=== PATIENT | male | born 1980 | race Two or more races ===

== ENCOUNTER 2019-02-01 20:24 | Observation (INO) | payer SELFPAY ==
[~2019-02-01] VITALS: Ht 172.7 cm; Wt 88.0 kg
--- NOTE | 2019-02-01 20:35 | NUR ---
BIB [facility] WITH C/O RIGHT LOWER BACK PAIN THAT STARTED 3 DAYS AGO, NOT ABLE TO URINATE THAT STARTED THIS MORTNING. PAIN WORSE WITH PALPATION OR MVMT. PT TOOK 2 EXCEDRIN PRIOR TO EMS ARRIVAL, EMS ADMINISTERED IV NS 250 ML, APPLIED HEAT PACK TO BACK. MONITORS APPLIED, SIDERAILS UP X2, CALL LIGHT WITHIN REACH
[2019-02-01] MEDS ORDERED: KETOROLAC 30 MG/1 ML ONE (20:45)
[2019-02-01] MEDS ORDERED: METHOCARBAMOL 750 MG TABLET ONE (20:46)
[2019-02-01] MEDS ORDERED: MORPHINE SULFATE 4 MG/ML, 1ML ONE ×2 (20:46→22:08)
--- NOTE | 2019-02-01 20:49 | NUR ---
Jimmy baez in ED - 02/01/19 at 2051 by MELINDA URINE SAMPLE SENT TO LAB. PT TO [facility]
--- NOTE | 2019-02-01 20:52 | NUR ---
URINE SAMPLE SENT TO LAB. PT TO CT
[2019-02-01 20:56] LABS: BASOPHILS # (AUTO) 0.03 x10^3/uL (0-0.1); BASOPHILS % (AUTO) 1 % (0-1); EOSINOPHILS % (AUTO) 4 % (1-7); LYMPHOCYTES # (AUTO) 2.82 x10^3/uL (1-3.4); LYMPHOCYTES % (AUTO) 42 % (22-44); MD NO; MEAN CORPUSCULAR HGB CONC 33.7 g/dL (33.2-36.2); MEAN CORPUSCULAR VOLUME 91.8 fL (81-97); MEAN PLATELET VOLUME 7.8 fL (7.4-10.4); MONOCYTES # (AUTO) 0.39 x10^3/uL (0.2-0.8); MONOCYTES % (AUTO) 6 % (2-9); NEUTROPHILS # (AUTO) 3.17 x10^3/uL (1.8-6.8); NEUTROPHILS % (AUTO) 47 % (42-75); PLATELET COUNT 220 x10^3/uL (130-400); RED BLOOD COUNT 5.26 x10^6/uL (4.38-5.82); RED CELL DISTRIBUTION WIDTH 13.4 % (9.4-14.8)
[2019-02-01] MEDS ORDERED: METHOCARBAMOL 750 MG TABLET PO ONE (21:00)
[2019-02-01] MEDS ORDERED: KETOROLAC 30 MG/1 ML IVPush ONE (21:00)
--- NOTE | 2019-02-01 21:03 | NUR ---
PT MEDICATED PER MAR, PROVIDED PT WITH WARM BLANKETS, MONITORS IN PLACE, CALL LIGHT WITHIN REACH
[2019-02-01 21:04] LABS: MICROSCOPIC NOT IND
[2019-02-01 21:05] LABS: CULTURE INDICATED? NO
[2019-02-01 21:06] LABS: ALANINE AMINOTRANSFERASE 51 U/L (12-78); ANION GAP 6 mmol/L (5-15); CALCIUM 8.9 mg/dL (8.5-10.1); CHLORIDE 107 mmol/L (98-107); CREATININE 1.13 mg/dL (0.7-1.3)
[2019-02-01 21:08] LABS: ALKALINE PHOSPHATASE 62 U/L (45-117); BILIRUBIN,TOTAL 0.4 mg/dL (0.2-1.0); TOTAL PROTEIN 7.3 g/dL (6.4-8.2)
[2019-02-01] MEDS: MORPHINE SULFATE 4 MG/ML, 1ML IVPush PRN ×2 (21:18→22:10)
--- NOTE | 2019-02-01 22:34 | NUR ---
pt getting ready for d/c, pt stated "i can't get up, i'm in too much pain", pt requesting to see erp. erp updated and will see pt
[2019-02-01] MEDS ORDERED: HYDROcodone/APAP 5/325 TABLET ONE (22:58)
[2019-02-01] MEDS ORDERED: HYDROcodone/APAP 5/325 TABLET PO ONE (23:00)
--- NOTE | 2019-02-01 23:35 | NUR ---
PT STATED HE IS UNABLE TO GET UP OOB BECAUSE IT'S TOO PAINFUL, ERP UPDATED, PT TO BE ADMITTED
[2019-02-02] MEDS ORDERED: HYDROmorphone 2 MG/ML, 1ML IVPush PRN
[2019-02-02] MEDS ORDERED: POLYETHYLENE GLYCOL 17 GM PACKET PO PRN (00:30)
[2019-02-02] MEDS ORDERED: BISACODYL 10 MG SUPP PR PRN (00:30)
[2019-02-02] MEDS ORDERED: methylPREDNISolone 4mg DOSE PACK PO ONE (00:30)
[2019-02-02] MEDS ORDERED: ONDANSETRON ODT 4 MG PO PRN (00:30)
[2019-02-02 00:35] VITALS: BP 125/80
[2019-02-02] MEDS: DIAZEPAM 5 MG TABLET PO PRN ×2 (00:57→11:43)
[2019-02-02 06:55] VITALS: BP 92/54
[2019-02-02] MEDS: SENNA/DOCUSATE TABLET PO SCH (07:54)
[2019-02-02] MEDS: SODIUM CHLORIDE FLUSH 10ML SYR IVF SCH ×2 (07:54→19:43)
[2019-02-02] MEDS: OXYcodone/APAP 5/325MG TABLET PO PRN ×4 (08:05→23:45)
[2019-02-02 10:43] LABS: BASOPHILS # (AUTO) 0.01 x10^3/uL (0-0.1); BASOPHILS % (AUTO) 0 % (0-1); EOSINOPHILS # (AUTO) 0.01 x10^3/uL (0-0.4); EOSINOPHILS % (AUTO) 0 % (1-7); LYMPHOCYTES # (AUTO) 1.18 x10^3/uL (1-3.4); LYMPHOCYTES % (AUTO) 22 % (22-44); MD NO; MEAN CORPUSCULAR HEMOGLOBIN 30.6 pg (27.5-34.5); MEAN CORPUSCULAR HGB CONC 33.6 g/dL (33.2-36.2); MEAN CORPUSCULAR VOLUME 90.9 fL (81-97); MEAN PLATELET VOLUME 7.8 fL (7.4-10.4); MONOCYTES # (AUTO) 0.09 x10^3/uL (0.2-0.8); MONOCYTES % (AUTO) 2 % (2-9); NEUTROPHILS # (AUTO) 4.13 x10^3/uL (1.8-6.8); NEUTROPHILS % (AUTO) 76 % (42-75); PLATELET COUNT 226 x10^3/uL (130-400); RED BLOOD COUNT 5.51 x10^6/uL (4.38-5.82); RED CELL DISTRIBUTION WIDTH 13.8 % (9.4-14.8)
[2019-02-02 10:57] LABS: ALBUMIN 4.2 g/dL (3.4-5.0); ANION GAP 8 mmol/L (5-15); CALCIUM 9.1 mg/dL (8.5-10.1); CHLORIDE 105 mmol/L (98-107)
[2019-02-02 11:01] LABS: ALANINE AMINOTRANSFERASE 51 U/L (12-78); ALKALINE PHOSPHATASE 73 U/L (45-117); BILIRUBIN,TOTAL 0.7 mg/dL (0.2-1.0); CREATININE 1.18 mg/dL (0.7-1.3); TOTAL PROTEIN 7.9 g/dL (6.4-8.2)
[2019-02-02] MEDS ORDERED: GADOBUTROL 10 MMOL/10 ML PFS ONE (12:16)
[2019-02-02 12:56] VITALS: BP 115/69
[2019-02-02] MEDS ORDERED: KETOROLAC 30 MG/1 ML IM PRN (16:30)
[2019-02-02] MEDS: METHOCARBAMOL 750 MG TABLET PO PRN ×2 (16:45→23:44)
[2019-02-02 18:32] VITALS: BP 119/66
[2019-02-03 01:25] VITALS: BP 107/64
[2019-02-03] MEDS: OXYcodone/APAP 5/325MG TABLET PO PRN ×2 (04:40→10:19)
[2019-02-03 05:40] LABS: BASOPHILS # (AUTO) 0.02 x10^3/uL (0-0.1); BASOPHILS % (AUTO) 0 % (0-1); EOSINOPHILS % (AUTO) 0 % (1-7); LYMPHOCYTES # (AUTO) 1.64 x10^3/uL (1-3.4); LYMPHOCYTES % (AUTO) 16 % (22-44); MD NO; MEAN CORPUSCULAR HEMOGLOBIN 30.1 pg (27.5-34.5); MEAN CORPUSCULAR VOLUME 91.1 fL (81-97); MEAN PLATELET VOLUME 8.1 fL (7.4-10.4); MONOCYTES # (AUTO) 0.41 x10^3/uL (0.2-0.8); MONOCYTES % (AUTO) 4 % (2-9); NEUTROPHILS # (AUTO) 8.41 x10^3/uL (1.8-6.8); NEUTROPHILS % (AUTO) 80 % (42-75); PLATELET COUNT 235 x10^3/uL (130-400); RED BLOOD COUNT 5.38 x10^6/uL (4.38-5.82)
[2019-02-03 05:42] LABS: CHLORIDE 105 mmol/L (98-107)
[2019-02-03 05:50] LABS: ALANINE AMINOTRANSFERASE 45 U/L (12-78); ALKALINE PHOSPHATASE 66 U/L (45-117); ANION GAP 6 mmol/L (5-15); BILIRUBIN,TOTAL 0.8 mg/dL (0.2-1.0); CALCIUM 8.8 mg/dL (8.5-10.1); CREATININE 1.02 mg/dL (0.7-1.3); TOTAL PROTEIN 7.5 g/dL (6.4-8.2)
[2019-02-03] MEDS: METHOCARBAMOL 750 MG TABLET PO PRN (08:03)
[2019-02-03] MEDS: SENNA/DOCUSATE TABLET PO SCH (08:03)
[2019-02-03] MEDS: SODIUM CHLORIDE FLUSH 10ML SYR IVF SCH (08:04)
[2019-02-03 08:15] VITALS: BP 99/59
[2019-02-03] MEDS ORDERED: MORPHINE SULFATE 4 MG/ML, 1ML IVPush PRN (10:30)
[2019-02-03 12:20] VITALS: BP 116/74
[2019-02-03 12:25] VITALS: BP 110/67
[2019-02-03] MEDS ORDERED: methylPREDNISolone SOD SUCC 125 MG/2 ML IVPush ONE (12:30)
[2019-02-03] MEDS ORDERED: METH500T97 PO (12:40)
[2019-02-03] MEDS ORDERED: HYDR-3240 PO (12:40)
[2019-02-03] MEDS ORDERED: METH4TAB2 PO (12:40)
[2019-02-03] MEDS ORDERED: GABA100C PO (12:41)
== END 2019-02-03 13:48 | disposition home or self-care (01) ==
LOC: ED 23:40 → INTOOBSV 23:49 → 4NOR 23:49 → ED 23:56 → DCLOUNGE 02-03 13:24
PROVIDERS: ADMIT Internal Medicine; ATTEND Internal Medicine
DX: M54.5 Low back pain (principal); G89.29 Other chronic pain; M43.06 Spondylolysis, lumbar region; M54.10 Radiculopathy, site unspecified
CPT/HCPCS: 36415; 72131; 72158; 74176; 80053; 81003; 83735; 84100; 85025; 93005; 96372; 96374; 96375; 96376; 97162; 99284; A9585; G0378; J1885; J2270; J2930; J7509